=== PATIENT | female | born 1995 | race African-American/Black ===

== ENCOUNTER 2018-05-19 12:33 | Inpatient (IN) ==
--- NOTE | 2018-05-19 13:09 | ED ---
HPI General Chief complaint: Fever Stated complaint: fever Time Seen by Provider: 05/19/18 13:07 Source: patient Mode of arrival: ambulatory Limitations: no limitations History of Present Illness HPI narrative: Patient gives a history of diabetes, Hodgkin's lymphoma along with port placement and removal, feeding tube and placement and removal, kidney transplant , cholecystectomy, all of these occurred during the years of 199906/05/2015. Patient states allergy to ibuprofen to which she developed hives, also had a fainting reactions and is not sure if it was a clindamycin or the vancomycin. However at no point did she develop any lip edema of tongue edema uvular edema wheezing hives or any other skin lesions to the clindamycin or vancomycin. Patient states that she developed symptoms such as myalgias, fever, chills, along with nausea and periumbilical area pain. Onset (ago): day(s) (2) Location: abdomen Radiation: non-radiation Severity: mild Severity scale (1-10): 2 Quality: aching Pain Consistency: intermittent Relieving factors: none Exacerbating factors: none Associated symptoms: nausea/vomiting (diarrhea) Related Data Allergies Allergy/AdvReac Type Severity Reaction Status Date / Time clindamycin AdvReac Fainting Verified 05/19/18 13:14 ibuprofen [From Motrin] AdvReac Hives Verified 05/19/18 13:14 vancomycin AdvReac Fainting Verified 05/19/18 13:14 Review of Systems ROS: all other systems reviewed are negative PMFSH History History Provided By: Patient Medical History Medical History Anemia (Acute) Diabetes (Acute) H/O Hodgkin's lymphoma (Acute) Hypothyroid (Acute) Surgical History Surgical History Kidney transplanted (Acute) Social History Social History Substance History: No History of Abuse Smoking Status: Never smoker How Often Do You Have a Drink Containing Alcohol: Never Recent Travel in [facility] within the Last 8 Weeks: No Recent Out of Country Travel within the Last 8 Weeks: No Exam Narrative Exam Narrative: GENERAL: Well-nourished, well-developed patient in no apparent distress. SKIN: Warm and dry. HEAD: Atraumatic. Normocephalic. EYES: Pupils equal and round. No scleral icterus. No injection or drainage. ENT: No nasal bleeding or discharge. Mucous membranes pink and moist. NECK: Trachea midline. No JVD. CARDIOVASCULAR: Tachycardic rate, regular rhythm. no rubs or gallops RESPIRATORY: No accessory muscle use. Clear to auscultation. Breath sounds equal bilaterally. GASTROINTESTINAL: Abdomen soft, mild tenderness palpation epigastric and Periumbilically. Full range of motion in all joints. No joint swelling/injury. Non-tender, nondistended. No rebound or guarding MUSCULOSKELETAL: Extremities without clubbing, cyanosis, or edema. No obvious deformities. NEUROLOGICAL: Awake and alert. No obvious cranial nerve deficits. Motor grossly within normal limits. Five out of 5 muscle strength in the arms and legs. Normal speech. PSYCHIATRIC: Appropriate mood and affect; insight and judgment normal. Course Initial Documented Vital Signs Temperature 102.3 F H 05/19/18 12:55 Pulse Rate 146 H 05/19/18 12:55 Respiratory Rate 20 05/19/18 12:55 Blood Pressure 136/71 05/19/18 12:55 Pulse Oximetry 98 05/19/18 12:55 Last Documented Vital Signs Temperature 102.3 F H 05/19/18 12:55 Pulse Rate 120 H 05/19/18 13:48 Respiratory Rate 20 05/19/18 12:55 Blood Pressure 136/71 05/19/18 12:55 Pulse Oximetry 100 05/19/18 13:42 Critical Care Time Critical Care Time: Yes Total Critical Care Time: 45 Attestation: Aggregate critical care time was 45 minutes. Time to perform other separately billable procedures was not included in the critical care time. My time did not include minutes spent treating any other patients simultaneously or on activities that did not directly contribute to the patient's treatment. The services I provided to this patient were to treat and/or prevent clinically significant deterioration from occurring namely septic shock. I provided critical care services requiring my management, as noted below: Chart data review, documentation time, medication orders and management, vital sign assessments/reviewing monitor data, ordering and reviewing lab tests, ordering and interpreting/reviewing x-rays and diagnostic studies, care of the patient and discussion of the patient with the admitting physicians. Medical Decision Making MDM Narrative Medical decision making narrative: Leukocytosis of 18,000 with 79% neutrophilia , no anemia, normal platelet count Electrolytes are all within normal limits. Next up for creatinine of 2.31 with a GFR 32 random glucose of 153 Normal lactic acid 1.2 Normal LFTs and UA consistent with very heavy UTI Chest x-ray read by radiologist shows a left basilar atelectasis, right lung is clear. Medical Screen Exam Complete: Yes Emergency Medical Condition: Yes Differential Diagnosis Differential Diagnosis: Viral versus bacterial gastroenteritis versus hepatitis versus pancreatitis versus cholecystitis versus Medical Records Medical records reviewed: Yes I reviewed the patient's medical records. Lab Data Result diagrams: 05/19/18 13:10 05/19/18 13:10 POC Results POC Urine Results Negative Lab Results 05/19/18 05/19/18 05/19/18 Range/Units 13:10 13:10 13:15 WBC 18.6 H (4.0-11.0) th/mm3 RBC 3.97 L (4.00-5.30) mil/mm3 Hgb 11.6 (11.6-15.3) gm/dL Hct 35.5 (35.0-46.0) % MCV 89.4 (80.0-100.0) fL MCH 29.3 (27.0-34.0) pg MCHC 32.8 (32.0-36.0) % RDW 14.3 (11.6-17.2) % Plt Count 324 (150-450) th/mm3 MPV 8.3 (7.0-11.0) fL Neut % (Auto) 78.7 H (16.0-70.0) % Lymph % (Auto) 10.9 (9.0-44.0) % Cherry % (Auto) 10.0 H (0.0-8.0) % Eos % (Auto) 0.0 (0.0-4.0) % Baso % (Auto) 0.4 (0.0-2.0) % Neut # (Auto) 14.6 H (1.8-7.7) th/mm3 Lymph # (Auto) 2.0 (1.0-4.8) th/mm3 Cherry # (Auto) 1.8 H (0.0-0.9) th/mm3 Eos # (Auto) 0.0 (0.0-0.4) th/mm3 Baso # (Auto) 0.1 (0.0-0.2) th/mm3 WBC Differential . Differential Comment Auto diff final Sodium 139 (136-145) meq/L Potassium 3.9 (3.5-5.1) meq/L Chloride 105 (98-107) meq/L Carbon Dioxide 24.0 (21.0-32.0) meq/L Anion Gap 10 (5-15) meq/L BUN 19 H (7-18) mg/dL Creatinine 2.31 H (0.50-1.00) mg/dL Estimated GFR 32 L (>89) mL/min Random Glucose 153 H (74-106) mg/dL Lactic Acid 1.2 (0.4-2.0) mmol/L Calcium 9.4 (8.5-10.1) mg/dL Total Bilirubin 1.6 H (0.2-1.0) mg/dL AST 27 (15-37) U/L ALT 17 (10-53) U/L Alkaline Phosphatase 95 (45-117) U/L Total Protein 8.9 H (6.4-8.2) g/dL Albumin 3.6 (3.4-5.0) g/dL Lipase 57 L (73-393) U/L Urine Color (Yellw/Straw) Urine Clarity (Clear) Urine pH (5.0-8.5) Ur Specific [place] (1.002-1.035) Urine Protein (Neg-Trace) mg/dL Urine Glucose (UA) (Negative) mg/dL Urine Ketones (Negative) mg/dL Urine Occult Blood (Negative) Urine Nitrate (Negative) Urine Bilirubin (Negative) Urine Urobilinogen (Less than 2) mg/dL Ur Leukocyte Esterase (Negative) Urine RBC (0-3) /hpf Urine WBC (0-5) /hpf Urine WBC Clumps (None) Ur Squamous Epith Cells (0-5) /hpf Ur Transition Epith Cell (None) /hpf Amorphous Sediment (None) /hpf Urine Bacteria (None) /hpf Urine Mucus (Occasional) /lpf Micro UA Comment Ur Microscopic Review Urine Culture Comments 05/19/18 Range/Units 13:25 WBC (4.0-11.0) th/mm3 RBC (4.00-5.30) mil/mm3 Hgb (11.6-15.3) gm/dL Hct (35.0-46.0) % MCV (80.0-100.0) fL MCH (27.0-34.0) pg MCHC (32.0-36.0) % RDW (11.6-17.2) % Plt Count (150-450) th/mm3 MPV (7.0-11.0) fL Neut % (Auto) (16.0-70.0) % Lymph % (Auto) (9.0-44.0) % Cherry % (Auto) (0.0-8.0) % Eos % (Auto) (0.0-4.0) % Baso % (Auto) (0.0-2.0) % Neut # (Auto) (1.8-7.7) th/mm3 Lymph # (Auto) (1.0-4.8) th/mm3 Cherry # (Auto) (0.0-0.9) th/mm3 Eos # (Auto) (0.0-0.4) th/mm3 Baso # (Auto) (0.0-0.2) th/mm3 WBC Differential Differential Comment Sodium (136-145) meq/L Potassium (3.5-5.1) meq/L Chloride (98-107) meq/L Carbon Dioxide (21.0-32.0) meq/L Anion Gap (5-15) meq/L BUN (7-18) mg/dL Creatinine (0.50-1.00) mg/dL Estimated GFR (>89) mL/min Random Glucose (74-106) mg/dL Lactic Acid (0.4-2.0) mmol/L Calcium (8.5-10.1) mg/dL Total Bilirubin (0.2-1.0) mg/dL AST (15-37) U/L ALT (10-53) U/L Alkaline Phosphatase (45-117) U/L Total Protein (6.4-8.2) g/dL Albumin (3.4-5.0) g/dL Lipase (73-393) U/L Urine Color Red (Yellw/Straw) Urine Clarity Cloudy H (Clear) Urine pH 6.0 (5.0-8.5) Ur Specific [place] 1.017 (1.002-1.035) Urine Protein 100 H (Neg-Trace) mg/dL Urine Glucose (UA) 50 (Negative) mg/dL Urine Ketones 20 (Negative) mg/dL Urine Occult Blood Large H (Negative) Urine Nitrate Positive H (Negative) Urine Bilirubin Negative (Negative) Urine Urobilinogen Less than 2 (Less than 2) mg/dL Ur Leukocyte Esterase Large H (Negative) Urine RBC (0-3) /hpf Urine WBC (0-5) /hpf Urine WBC Clumps Many H (None) Ur Squamous Epith Cells 3 (0-5) /hpf Ur Transition Epith Cell 1 (None) /hpf Amorphous Sediment Rare H (None) /hpf Urine Bacteria Many H (None) /hpf Urine Mucus Few H (Occasional) /lpf Micro UA Comment Culture indicated Ur Microscopic Review Not Reportable Urine Culture Comments Culture indicated Imaging Data Radiologist's impression: Chest X-Ray 05/19/18 13:09 CONCLUSION: Left basilar atelectasis. Discharge Plan Discharge Disposition Patient Disposition: 30 Still Patient Discharge Condition Condition: Fair Discharge Details Diagnosis: Sepsis, Enteritis, UTI (urinary tract infection) Physicians Team ED Provider: Stanton Coleman Primary Care Provider: Primary Care Ariadne Velásquez Status ED Status: With Doctor
[2018-05-19] MEDS ORDERED: Acetaminophen 325 MG Tablet PO ONE (13:14)
[2018-05-19] MEDS ORDERED: Sod Chloride 0.9% Inj 1,000 ML IV.SIG SCH ×2 (13:15)
--- NOTE | 2018-05-19 13:40 | XR ---
EXAM DATE: 05/19/2018 1:37 PM EDT AGE/SEX: 22 years / Female INDICATIONS: Shortness of breath, cough and chest pain. CLINICAL DATA: This is the patient's initial encounter. Patient reports that signs and symptoms have been present for 3 days and indicates a pain score of 6/10. MEDICAL/SURGICAL HISTORY: None. None. COMPARISON: No prior exams available for comparison. FINDINGS: Right lung is clear. Linear subsegmental atelectasis left lung base. Heart size normal. Osseous struc tures are intact. CONCLUSION: Left basilar atelectasis. Electronically signed by: Tres Beltre MD 05/19/2018 1:39 PM EDT
[2018-05-19 13:48] LABS: Baso # (Auto) 0.1 th/mm3 (0.0-0.2); Baso % (Auto) 0.4 % (0.0-2.0); Hematocrit 35.5 % (35.0-46.0); Hemoglobin 11.6 gm/dL (11.6-15.3); Lymph % (Auto) 10.9 % (9.0-44.0); Mean Corpuscular HGB Conc 32.8 % (32.0-36.0); Mean Corpuscular Hemoglobin 29.3 pg (27.0-34.0); Mean Corpuscular Volume 89.4 fL (80.0-100.0); Mean Platelet Volume 8.3 fL (7.0-11.0); Mono # (Auto) 1.8 th/mm3 (0.0-0.9); Neut # (Auto) 14.6 th/mm3 (1.8-7.7); Neut % (Auto) 78.7 % (16.0-70.0); Platelet Count 324 th/mm3 (150-450); Red Blood Count 3.97 mil/mm3 (4.00-5.30); Red Cell Distribution Width 14.3 % (11.6-17.2); White Blood Count 18.6 th/mm3 (4.0-11.0)
[2018-05-19 14:00] LABS: Amorphous Sediment,Urine Rare /hpf; Bacteria,Urine Many /hpf; Bilirubin,Urine Negative (Negative); Clarity,Urine Cloudy (Clear); Color,Urine Red (Yellw/Straw); Glucose,Urine (UA) 50 mg/dL (Negative); Leukocyte Esterase,Urine Large (Negative); Mucus,Urine Few /lpf (Occasional); Nitrite,Urine Positive (Negative); Specific Gravity,Urine 1.017 (1.002-1.035); Squamous Epithelial Cell,Urine 3 /hpf (0-5); Transitional Epi Cells,Urine 1 /hpf
[2018-05-19 14:02] LABS: Alanine Aminotransferase 17 U/L (10-53); Albumin 3.6 g/dL (3.4-5.0); Anion Gap 10 meq/L (5-15); Aspartate Aminotransferase 27 U/L (15-37); Blood Urea Nitrogen 19 mg/dL (7-18); Calcium 9.4 mg/dL (8.5-10.1); Chloride 105 meq/L (98-107); Glomerular Filtration Rate 32 mL/min (>89); Glucose,Random 153 mg/dL (74-106); Lipase 57 U/L (73-393); Potassium 3.9 meq/L (3.5-5.1); Sodium 139 meq/L (136-145)
[2018-05-19 14:05] LABS: Alkaline Phosphatase 95 U/L (45-117); Total Protein 8.9 g/dL (6.4-8.2)
[2018-05-19] MEDS ORDERED: Sod Chloride 0.9% Inj 1,000 ML IV.SIG ONE (14:49)
--- NOTE | 2018-05-19 15:28 | P.HPIM ---
History of Present Illness Primary Care Physician: No Primary Care Physician History of Present Illness: 22 year old female with IDDM, hypothyroidism, history of renal transplant (2016), and history of Hodgkin lymphoma in remission presented to the ED for evaluation of fever, myalgias, and dysuria. The patient reports two days ago she started having diffuse body aches, chills, and general malaise. She took her temperature and it was 100.8. She treated it with Tylenol and continued to have a low grade fever but today her temperature spiked to 103.4. She has also had 6/10, periumbilical, constant, dull abdominal pain during this time and today she began having dysuria, nausea, dry heaves, and nonbloody liquid diarrhea. She has had decreased appetite and oral intake the past couple days. She also complains of some substernal chest pain that is associated with a sour taste in her mouth and heart burn. She denies cough, shortness of breath , wheezing, rash, headache, sore throat, hematuria, or edema. Along with her dysuria she also complains of hesitancy and decreased UOP. She states her creatinine is typically around 1. She recently moved to [place] from [place] at the end of December but hasn't been able to establish with any local physicians yet. While in [place] she was followed by nephrology, endocrinology, and oncology. For her diabetes, she takes 15 units Novolog TID and 25 units Trasiba. - Diagnosis (1) Pyelonephritis (2) Sepsis Inpatient Certification: I certify that the inpatient services were ordered in accordance with Medicare regulations governing the order. This includes certification that hospital inpatient services are reasonable and necessary and in the case of services not specified as inpatient-only under 42 CFR 419.22(n), that they are appropriately provided as inpatient services in accordance to with the 2-midnight benchmark under 43 CFR 412.3(e) Estimated Total Length of Stay (Days): 2 Plans for Post Hospital Care: Home [facility] - History History Provided By: Patient - Medical History Medical History: Medical History (Last Reviewed 05/19/18 @ 15:27 by Christine Christian MD) Anemia Diabetes H/O Hodgkin's lymphoma Hypothyroid - Surgical History Surgical History: Surgical History (Last Updated 05/19/18 @ 15:27 by Christine Christian MD) H/O stem cell transplant Hx of cholecystectomy Kidney transplanted - Family History Family History: Family History (Last Updated 05/19/18 @ 15:28 by Christine Christian MD) Grandparent Hypertension Heart disease - Social History I have reviewed the patient's Social History: Yes - Tobacco History Smoking Status: Never smoker - Alcohol History How Often Do You Have a Drink Containing Alcohol: Never - Substance Use History Substance History: No History of Abuse - Travel History Recent Travel in the [place] Within the Last 8 Weeks: No Recent Travel Out of the Country Within the Last 8 Weeks: No - Immunization History Tetanus Immunization: Unsure Hx Influenza Vaccine This Season: No Medications and Allergies Active Medications: Active Medications Sodium Chloride (Ns Inj) 1,000 mls @ 0 mls/hr IV.SIG .Q0M ANNAMARIE Last Infusion: 05/19/18 15:18 Dose: Infused Sodium Chloride (Ns Inj) 1,000 mls @ 0 mls/hr IV.SIG .Q0M ANNAMARIE Last Admin: 05/19/18 15:10 Dose: 999 mls/hr Metronidazole/Sodium Chloride (Flagyl 500 Mg Inj) 100 mls @ 100 mls/hr IV.SIG ONCE ONE Stop: 05/19/18 15:51 Last Admin: 05/19/18 15:10 Dose: 100 mls/hr Allergies Allergy/AdvReac Type Severity Reaction Status Date / Time clindamycin AdvReac Fainting Verified 05/19/18 13:14 ibuprofen [From Motrin] AdvReac Hives Verified 05/19/18 13:14 vancomycin AdvReac Fainting Verified 05/19/18 13:14 Home Medications Medication Instructions Recorded Confirmed Type insulin aspart U-100 [Novolog 15 unit SUB-Q TIDAC 05/19/18 05/19/18 History Flexpen U-100 Insulin] insulin degludec [Tresiba 25 unit SUB-Q HS 05/19/18 05/19/18 History FlexTouch U-100] levothyroxine 100 mcg PO DAILY 05/19/18 05/19/18 History mycophenolate mofetil [CellCept] 2,250 mg PO BID 05/19/18 05/19/18 History prednisone 5 mg PO DAILY 05/19/18 05/19/18 History tacrolimus [Envarsus XR] 6 mg PO DAILY 05/19/18 05/19/18 History Exam Vital signs: Vital Signs 05/19/18 12:55 05/19/18 13:42 05/19/18 13:48 Temperature 102.3 F H Pulse Rate 146 H 120 H Respiratory Rate 20 Blood Pressure 136/71 Pulse Oximetry 98 100 05/19/18 15:12 Temperature 100.6 F H Pulse Rate 107 H Respiratory Rate 16 Blood Pressure 107/58 L Pulse Oximetry 100 Intake & Output 05/18/18 05/19/18 05/19/18 18:59 06:59 18:59 Intake Total 1000 / 1000 Balance 1000 / 1000 Weight 95 kg Intake: IV 1000 / 1000 NS Inj 1,000 ML @ Wide Open IV. 1000 / 1000 SIG .Q0M [facility] Rx#:[id number] Narrative: GENERAL: WN, WD AA female resting in bed in NAD. SKIN: Warm and dry. No rash. HEENT: AT/NC. PERRLA. EOMI. No scleral icterus. MMM. NECK: Supple no tender LAD or JVD. HEART: Tachycardic no m/r/g. LUNGS: CTAB without wheezes or crackles. ABDOMEN: +BS, soft, NT, ND. No suprapubic tenderness. No guarding or rebound. BACK: No CVA tenderness. EXTREMITIES: No LE edema. 2+ pedal pulses. NEURO: Awake and alert. Nonfocal. Results - Labs CBC & Chem 7: 05/19/18 13:10 05/19/18 13:10 Labs: Short CBC 05/19/18 Range/Units 13:10 WBC 18.6 H (4.0-11.0) th/mm3 Hgb 11.6 (11.6-15.3) gm/dL Hct 35.5 (35.0-46.0) % Plt Count 324 (150-450) th/mm3 BMP 05/19/18 13:10 Sodium 139 Potassium 3.9 Chloride 105 Carbon Dioxide 24.0 BUN 19 H Creatinine 2.31 H Calcium 9.4 Liver Function 05/19/18 Range/Units 13:10 Total Bilirubin 1.6 H (0.2-1.0) mg/dL AST 27 (15-37) U/L ALT 17 (10-53) U/L Alkaline Phosphatase 95 (45-117) U/L Albumin 3.6 (3.4-5.0) g/dL Urine 05/19/18 Range/Units 13:25 Urine Color Red (Yellw/Straw) Urine Clarity Cloudy H (Clear) Urine pH 6.0 (5.0-8.5) Ur Specific [place] 1.017 (1.002-1.035) Urine Protein 100 H (Neg-Trace) mg/dL Urine Glucose (UA) 50 (Negative) mg/dL - Imaging Chest X-Ray 05/19/18 13:09 CONCLUSION: Left basilar atelectasis. Abdomen/Pelvis CT 05/19/18 14:50 CONCLUSION: 1. Transplant kidney in the right side of the pelvis. Mild nonspecific stranding opacity in the fat about the transplant kidney. No evidence of hydronephrosis. 2. No other acute findings identified in the abdomen and pelvis. Caprini VTE Risk Assessment Caprini VTE Risk Assessment: Moderate/High Risk (score >= 2) Caprini Risk Assessment Model: Point Value = 1 Point Value = 2 Point Value = 3 Point Value = 5 Age 41-60 Minor surgery BMI > 25 kg/m2 Swollen legs Varicose veins or History of unexplained or recurrent spontaneous Oral contraceptives or hormone replacement Sepsis (< 1 month) Serious lung disease, including pneumonia (< 1 month) Abnormal pulmonary function Acute myocardial infarction Congestive heart failure (< 1 month) History of inflammatory bowel disease Medical patient at bed rest Age 61-74 Arthroscopic surgery Major open surgery (> 45 min) Laparoscopic surgery (> 45 min) Malignancy Confined to bed (> 72 hours) Immobilizing plaster cast Central venous access Age >= 75 History of VTE Family history of VTE Factor V Leiden Prothrombin [id number] Lupus anticoagulant Anticardiolipin antibodies Elevated serum homocysteine Heparin-induced thrombocytopenia Other congenital or acquired thrombophilia Stroke (< 1 month) Elective arthroplasty Hip, pelvis, or leg fracture Acute spinal cord injury (< 1 month) Prophylaxis Regimen: Total Risk Factor Score Risk Level Prophylaxis Regimen 0-1 Low Early ambulation 2 Moderate Order ONE of the following: *Sequential Compression Device (SCD) *Heparin 5000 units SQ BID 3-4 Higher Order ONE of the following medications: *Heparin 5000 units SQ TID *Enoxaparin/Lovenox 40 mg SQ daily (WT < 150 kg, CrCl > 30 mL/min) *Enoxaparin/Lovenox 30 mg SQ daily (WT < 150 kg, CrCl > 10-29 mL/min) *Enoxaparin/Lovenox 30 mg SQ BID (WT < 150 kg, CrCl > 30 mL/min) AND/OR *Sequential Compression Device (SCD) 5 or more Highest Order ONE of the following medications: *Heparin 5000 units SQ TID (Preferred with Epidurals) *Enoxaparin/Lovenox 40 mg SQ daily (WT < 150 kg, CrCl > 30 mL/min) *Enoxaparin/Lovenox 30 mg SQ daily (WT < 150 kg, CrCl > 10-29 mL/min) *Enoxaparin/Lovenox 30 mg SQ BID (WT < 150 kg, CrCl > 30 mL/min) AND *Sequential Compression Device (SCD) Assessment and Plan - Assessment (1) Pyelonephritis Code(s): N12 - Tubulo-interstitial nephritis, not specified as acute or chronic Status: Acute (2) Sepsis Code(s): A41.9 - Sepsis, unspecified organism Status: Acute - Plan 22 year old female with IDDM, hypothyroidism, history of renal transplant (2016), and history of Hodgkin lymphoma in remission presented to the ED for evaluation of fever, myalgias, and dysuria. 1. Sepsis - Patient meets sepsis criteria based on fever with T 102.3 on arrival, tachycardia, leukocytosis with WBC 18.6, and source of infection (urine) - Lactic acid normal at 1.2 - Received NS bolus x 2 in the ED - Continue NS at 100 ml/hr - Blood and urine cultures pending - Rapid strep and influenza antigens negative 2. Pyelonephritis - U/A with large blood, positive nitrate, and large leukocyte esterase - Urine culture pending, await final C&S - CT A/P with some perinephric fat stranding about the right transplanted kidney - Given a dose of Rocephin in the ED which will continue - IV hydration and antiemetics PRN 3. CASSANDRA - Patient with a history of right renal transplant in 2016 - Self-reported creatinine baseline is around 1 - Creatinine 2.31 with BUN 19 on admission, likely secondary to infection and decreased oral intake - Bolused x 2 - Continue NS fluids - Monitor renal function - Avoid nephrotoxic agents 4. Abdominal pain - Abdominal exam is benign - CT A/P with some perinephric fat stranding as described above otherwise no acute findings - Lipase WNL - Likely secondary to UTI vs. possible concomitant gastroenteritis given diarrhea, nausea, and dry heaves 5. Diabetes - Patient on 15 units Novolog TID and 25 units Trasiba at home - Will place on SSI with Accuchecks per protocol given appetite and oral intake is diminished 6. GERD - Zantac BID 7. History of renal transplant - Continue home immunosuppressants 8. Hypothyroidism - Resume home levothyroxine DVT prophylaxis: SCDs Code Status: Full Discussed Condition With: Patient and her mother, ED physician (2) Sepsis Qualifiers: Sepsis type: sepsis due to unspecified organism Qualified Code(s): A41.9 - Sepsis, unspecified organism
[2018-05-19] MEDS ORDERED: Bisacodyl 10 MG Supp RECTAL PRN (15:38)
[2018-05-19] MEDS ORDERED: Zolpidem Tartrate 5 MG Tablet PO PRN (15:38)
[2018-05-19] MEDS ORDERED: Dextrose 50% in Water 50 ML Vial IV.PUSH PRN (15:43)
--- NOTE | 2018-05-19 16:18 | CT ---
EXAM DATE: 05/19/2018 3:59 PM EDT AGE/SEX: 22 years / Female INDICATIONS: Lower abdominal pain, nausea, and diarrhea for two days. CLINICAL DATA: This is the patient's initial encounter. Patient reports that signs and symptoms have been present for 2 days and indicates a pain score of 6/10. MEDICAL/SURGICAL HISTORY: Anemia. Diabetes. Hodgkins lymphoma. . Kidney transplant two years ago. RADIATION DOSE: 7.97 CTDI (mGy) COMPARISON: No prior exams available for comparison. TECHNIQUE: Multiple contiguous axial images were obtained through the abdomen. Images were obtained using multiple row detector helical technique. Using automated exposure control and adjustment of the mA and/or kV according to patient size, radiation dose was kept as low as reasonably achievable to o btain optimal diagnostic quality images. DICOM format image data is available electronically for rev iew and comparison. FINDINGS: Lower Lungs: Atelectasis at the left lung base. Liver: Cholecystectomy clips in the gallbladder fossa. Liver is homogeneous and within normal limits. Spleen: Homogeneous density without enlargement. Pancreas: Unremarkable without mass or calcification. Kidneys: Atrophic [place] kidneys. Transplant kidney is noted in the right side of the pelvis. Mild s tranding opacity about the transplant kidney. No evidence of hydronephrosis. No calculi identified. Adrenal Glands: Unremarkable. Aorta: The aorta and proximal iliac vessels are grossly unremarkable without aneurysmal dilation. Bowel/Mesentery: No evidence of bowel dilatation. No free air or free fluid. Appendix within normal limits. Abdominal Wall: Intact. Retroperitoneum: Within normal limits. Multiple subcentimeter lymph nodes are likely reactive. Bladder: Contours are smooth. Reproductive Organs: No abnormal masses or calcifications seen. Inguinal: The inguinal region is unremarkable without evidence of adenopathy. Bony Structures: Unremarkable. CONCLUSION: 1. Transplant kidney in the right side of the pelvis. Mild nonspecific stranding opacity in the fat about the transplant kidney. No evidence of hydronephrosis. 2. No other acute findings identified in the abdomen and pelvis. Electronically signed by: Ashish Jimenes MD 05/19/2018 4:17 PM EDT
[2018-05-19] MEDS ORDERED: Morphine Sulfate Inj 2 MG/ML Vial IV.PUSH PRN (17:26)
[2018-05-19] MEDS ORDERED: Mycophenolate Mofetil 250 MG Capsule PO SCH (18:00)
[2018-05-19] MEDS: Insulin NovoLOG Aspart Correctional Sugar Inj SQ SCH ×2 (20:36→21:18)
[2018-05-19] MEDS: Acetaminophen 325 MG Tablet PO PRN (21:08)
[2018-05-19] MEDS: Famotidine 20 MG Tablet PO SCH ×2 (21:08→21:12)
[2018-05-19] MEDS: Sod Chloride 0.9% Inj 1,000 ML IV.CONT SCH (21:16)
[2018-05-19] MEDS: Insulin Detemir Inj 1,000 UNIT/10 ML Vial SQ SCH (21:47)
[2018-05-19] MEDS: Mycophenolate Mofetil 250 MG Capsule PO SCH (22:04)
[2018-05-20 04:54] LABS: Baso % (Auto) 0.3 % (0.0-2.0); Eos # (Auto) 0.1 th/mm3 (0.0-0.4); Eos % (Auto) 0.5 % (0.0-4.0); Hematocrit 30.1 % (35.0-46.0); Hemoglobin 9.8 gm/dL (11.6-15.3); Lymph # (Auto) 1.4 th/mm3 (1.0-4.8); Lymph % (Auto) 11.3 % (9.0-44.0); Mean Corpuscular HGB Conc 32.5 % (32.0-36.0); Mean Corpuscular Hemoglobin 28.9 pg (27.0-34.0); Mean Corpuscular Volume 89.2 fL (80.0-100.0); Mono # (Auto) 1.2 th/mm3 (0.0-0.9); Mono % (Auto) 9.9 % (0.0-8.0); Neut # (Auto) 9.5 th/mm3 (1.8-7.7); Platelet Count 258 th/mm3 (150-450); Red Blood Count 3.37 mil/mm3 (4.00-5.30); Red Cell Distribution Width 14.3 % (11.6-17.2); White Blood Count 12.2 th/mm3 (4.0-11.0)
[2018-05-20 05:23] LABS: Carbon Dioxide 21.8 meq/L (21.0-32.0); Potassium 3.8 meq/L (3.5-5.1)
[2018-05-20] MEDS: Levothyroxine 100 MCG Tablet PO SCH (05:36)
[2018-05-20] MEDS: Mycophenolate Mofetil 250 MG Capsule PO SCH ×2 (05:36→18:32)
[2018-05-20] MEDS: Sod Chloride 0.9% Inj 1,000 ML IV.CONT SCH ×2 (05:39→15:17)
[2018-05-20] MEDS ORDERED: TACROLIMUS 1 MG PO SCH (06:00)
[2018-05-20] MEDS: Famotidine 20 MG Tablet PO SCH ×2 (08:48→20:38)
[2018-05-20] MEDS: predniSONE 5 MG Tablet PO SCH (08:48)
[2018-05-20] MEDS: Insulin Detemir Inj 1,000 UNIT/10 ML Vial SQ SCH ×2 (08:48→20:36)
[2018-05-20] MEDS: Acetaminophen 325 MG Tablet PO PRN ×2 (08:49→23:46)
[2018-05-20] MEDS: Insulin NovoLOG Aspart Correctional Sugar Inj SQ SCH ×4 (09:47→20:25)
--- NOTE | 2018-05-20 10:48 | P.PN ---
Subjective Interval history: Follow-up for sepsis, urinary tract infection with possible hilar nephritis. Patient is currently doing well. Ambulating well. Denies any chest pain, shortness of breath. However she continues to have fever. She had 103.0F fever today. She denies any flank pain but reports lower abdominal pain. Physical Exam Vital signs: Vital Signs 05/19/18 12:55 05/19/18 13:42 05/19/18 13:48 Temperature 102.3 F H Pulse Rate 146 H 120 H Respiratory Rate 20 Blood Pressure 136/71 Pulse Oximetry 98 100 05/19/18 15:12 05/19/18 17:58 05/19/18 19:00 Temperature 100.6 F H Pulse Rate 107 H 103 H Respiratory Rate 16 Blood Pressure 107/58 L Pulse Oximetry 100 100 05/19/18 20:00 05/19/18 21:00 05/19/18 22:00 Temperature 102 F H Pulse Rate 122 H 122 H 118 H Respiratory Rate 16 Blood Pressure 116/71 Pulse Oximetry 99 05/19/18 23:00 05/19/18 23:49 05/20/18 00:00 Temperature 100.9 F H Pulse Rate 116 H 115 H 102 H Respiratory Rate 16 Blood Pressure 104/56 L Pulse Oximetry 99 05/20/18 01:00 05/20/18 01:27 05/20/18 02:00 Temperature 99 F Pulse Rate 98 H 95 H Respiratory Rate Blood Pressure Pulse Oximetry 05/20/18 03:00 05/20/18 03:47 05/20/18 04:00 Temperature 100.1 F H Pulse Rate 99 H 98 H 102 H Respiratory Rate 16 Blood Pressure 112/67 Pulse Oximetry 100 05/20/18 05:00 05/20/18 05:10 05/20/18 06:00 Temperature Pulse Rate 102 H 108 H Respiratory Rate Blood Pressure Pulse Oximetry 99 05/20/18 07:00 05/20/18 08:00 05/20/18 10:16 Temperature 103.0 F H Pulse Rate 113 H 107 H Respiratory Rate 18 Blood Pressure 124/70 Pulse Oximetry 100 99 Intake & Output 05/19/18 05/20/18 05/20/18 18:59 06:59 18:59 Intake Total 2200 / 2200 2480 / 2480 Output Total 200 / 200 700 / 700 Balance 1999 1999 1780 / 1780 Weight 95 kg 84.2 kg Intake: IV 2200 / 2200 1999 NS Inj 1,000 ML @ 100 mls/hr IV 1000 / 1000 .CONT .Q10H ANNAMARIE Rx#:[id number] NS Inj 1,000 ML @ Wide Open IV. 1999 1000 / 1000 SIG BOLUS ONE Rx#:[id number] Rocephin Inj 2,000 MG In NS Inj 100 / 100 100 ML @ 200 mls/hr IV.SIG ONCE ONE Rx#:[id number] Flagyl 500 MG Inj 100 ML @ 100 100 / 100 mls/hr IV.SIG ONCE ONE Rx#: [id number] Oral 480 / 480 Output: Urine 200 / 200 700 / 700 Other: Date of Last Bowel Movement 05/19/18 05/19/18 05/19/18 Narrative: GENERAL: Alert, oriented 3, NAD. SKIN: Warm and dry. HEAD: Normocephalic. EYES: No scleral icterus. No injection or drainage. NECK: Supple, trachea midline. No JVD or lymphadenopathy. CARDIOVASCULAR: Regular rate and rhythm without murmurs, gallops, or rubs. RESPIRATORY: Breath sounds equal bilaterally. No accessory muscle use. GASTROINTESTINAL: Abdomen soft, non-tender, nondistended. MUSCULOSKELETAL: No cyanosis, or edema. BACK: Nontender without obvious deformity. No CVA tenderness. Results - Labs CBC & Chem 7: 05/20/18 04:30 05/20/18 04:30 Laboratory Results - last 24 hr 05/19/18 05/19/18 05/19/18 13:10 13:10 13:15 WBC 18.6 H RBC 3.97 L Hgb 11.6 Hct 35.5 MCV 89.4 MCH 29.3 MCHC 32.8 RDW 14.3 Plt Count 324 MPV 8.3 Neut % (Auto) 78.7 H Lymph % (Auto) 10.9 Barry % (Auto) 10.0 H Eos % (Auto) 0.0 Baso % (Auto) 0.4 Neut # (Auto) 14.6 H Lymph # (Auto) 2.0 Barry # (Auto) 1.8 H Eos # (Auto) 0.0 Baso # (Auto) 0.1 WBC Differential . Differential Comment Auto diff final Sodium 139 Potassium 3.9 Chloride 105 Carbon Dioxide 24.0 Anion Gap 10 BUN 19 H Creatinine 2.31 H Estimated GFR 32 L POC Glucose Random Glucose 153 H Lactic Acid 1.2 Calcium 9.4 Total Bilirubin 1.6 H AST 27 ALT 17 Alkaline Phosphatase 95 Total Protein 8.9 H Albumin 3.6 Lipase 57 L Urine Color Urine Clarity Urine pH Ur Specific [place] Urine Protein Urine Glucose (UA) Urine Ketones Urine Occult Blood Urine Nitrate Urine Bilirubin Urine Urobilinogen Ur Leukocyte Esterase Urine RBC Urine WBC Urine WBC Clumps Ur Squamous Epith Cells Ur Transition Epith Cell Amorphous Sediment Urine Bacteria Urine Mucus Micro UA Comment Ur Microscopic Review Urine Culture Comments 05/19/18 05/19/18 05/19/18 13:25 18:36 21:00 WBC RBC Hgb Hct MCV MCH MCHC RDW Plt Count MPV Neut % (Auto) Lymph % (Auto) Barry % (Auto) Eos % (Auto) Baso % (Auto) Neut # (Auto) Lymph # (Auto) Barry # (Auto) Eos # (Auto) Baso # (Auto) WBC Differential Differential Comment Sodium Potassium Chloride Carbon Dioxide Anion Gap BUN Creatinine Estimated GFR POC Glucose 124 H 100 Random Glucose Lactic Acid Calcium Total Bilirubin AST ALT Alkaline Phosphatase Total Protein Albumin Lipase Urine Color Red Urine Clarity Cloudy H Urine pH 6.0 Ur Specific [place] 1.017 Urine Protein 100 H Urine Glucose (UA) 50 Urine Ketones 20 Urine Occult Blood Large H Urine Nitrate Positive H Urine Bilirubin Negative Urine Urobilinogen Less than 2 Ur Leukocyte Esterase Large H Urine RBC Urine WBC Urine WBC Clumps Many H Ur Squamous Epith Cells 3 Ur Transition Epith Cell 1 Amorphous Sediment Rare H Urine Bacteria Many H Urine Mucus Few H Micro UA Comment Culture indicated Ur Microscopic Review Not Reportable Urine Culture Comments Culture indicated 05/20/18 05/20/18 05/20/18 04:30 04:30 08:28 WBC 12.2 H RBC 3.37 L Hgb 9.8 L Hct 30.1 L MCV 89.2 MCH 28.9 MCHC 32.5 RDW 14.3 Plt Count 258 MPV 8.0 Neut % (Auto) 78.0 H Lymph % (Auto) 11.3 Barry % (Auto) 9.9 H Eos % (Auto) 0.5 Baso % (Auto) 0.3 Neut # (Auto) 9.5 H Lymph # (Auto) 1.4 Barry # (Auto) 1.2 H Eos # (Auto) 0.1 Baso # (Auto) 0.0 WBC Differential . Differential Comment Auto diff final Sodium 144 Potassium 3.8 Chloride 112 H Carbon Dioxide 21.8 Anion Gap 10 BUN 14 Creatinine 1.56 H Estimated GFR 51 L POC Glucose 118 H Random Glucose 111 H Lactic Acid Calcium 8.0 L D Total Bilirubin AST ALT Alkaline Phosphatase Total Protein Albumin Lipase Urine Color Urine Clarity Urine pH Ur Specific [place] Urine Protein Urine Glucose (UA) Urine Ketones Urine Occult Blood Urine Nitrate Urine Bilirubin Urine Urobilinogen Ur Leukocyte Esterase Urine RBC Urine WBC Urine WBC Clumps Ur Squamous Epith Cells Ur Transition Epith Cell Amorphous Sediment Urine Bacteria Urine Mucus Micro UA Comment Ur Microscopic Review Urine Culture Comments Microbiology 05/19/18 13:40 Throat Group A Streptococcus Screen ([facility]) - Final 05/19/18 13:25 Nasal Wash Influenza Types A,B Antigen - Final Negative for FLU A and B antigen Infection due to influenza A or B cannot be ruled out since the antigen present in the sample may be below the detection limit of the test. - Imaging Impressions Chest X-Ray 05/19/18 13:09 CONCLUSION: Left basilar atelectasis. Abdomen/Pelvis CT 05/19/18 14:50 CONCLUSION: 1. Transplant kidney in the right side of the pelvis. Mild nonspecific stranding opacity in the fat about the transplant kidney. No evidence of hydronephrosis. 2. No other acute findings identified in the abdomen and pelvis. Assessment and Plan - Assessment (1) Pyelonephritis Code(s): N12 - Tubulo-interstitial nephritis, not specified as acute or chronic Status: Acute (2) Sepsis Code(s): A41.9 - Sepsis, unspecified organism Status: Acute - Plan Ms. Bucio is a 22 year old female with IDDM, hypothyroidism, history of renal transplant (2016), and history of Hodgkin lymphoma in remission presented to the ED for evaluation of fever, myalgias, and dysuria. Sepsis - Patient meets sepsis criteria based on fever with T 102.3 on arrival, tachycardia, leukocytosis with WBC 18.6, and source of infection (urine) - Lactic acid normal at 1.2 - Received NS bolus x 2 in the ED - Continue NS at 100 ml/hr - Blood and urine cultures pending - Rapid strep and influenza antigens negative Urine tract infection Possible pyelonephritis - U/A with large blood, positive nitrate, and large leukocyte esterase - Urine culture growing GNR. Will wait for identification. - Continue Ceftriaxone 1g Qday. - CT A/P with some perinephric fat stranding about the right transplanted kidney - Given a dose of Rocephin in the ED which will continue - IV hydration and antiemetics PRN Acute kidney injury Hx of Renal transplant (right side) - Patient with a history of right renal transplant in 2016 - Self-reported creatinine baseline is around 1 - Creatinine 2.31 improved to 1.56. - Will continue IV NS today. Repeat BMP in the AM. Tacrolimus level less than 2. Diabetes mellitus - Patient on 15 units Novolog TID and 25 units Tresiba at home - In the hospital, we will continue sliding scale insulin and Levemir 7 units q. at bedtime. Hypothyroidism - Resume home levothyroxine 100mcg QAM Full code. DVT prophylaxis: SCDs (2) Sepsis Qualifiers: Sepsis type: sepsis due to unspecified organism Qualified Code(s): A41.9 - Sepsis, unspecified organism
[2018-05-20] MEDS ORDERED: TACROLIMUS 1 MG PO ONE (21:00)
[2018-05-21] MEDS: Mycophenolate Mofetil 250 MG Capsule PO SCH ×2 (06:31→19:02)
[2018-05-21] MEDS: Levothyroxine 100 MCG Tablet PO SCH (06:31)
[2018-05-21] MEDS: TACROLIMUS 1 MG PO SCH (06:32)
[2018-05-21 07:23] LABS: Baso % (Auto) 0.2 % (0.0-2.0); Eos # (Auto) 0.1 th/mm3 (0.0-0.4); Eos % (Auto) 1.3 % (0.0-4.0); Hematocrit 29.2 % (35.0-46.0); Hemoglobin 9.8 gm/dL (11.6-15.3); Lymph # (Auto) 1.5 th/mm3 (1.0-4.8); Lymph % (Auto) 13.3 % (9.0-44.0); Mean Corpuscular HGB Conc 33.5 % (32.0-36.0); Mean Corpuscular Hemoglobin 29.7 pg (27.0-34.0); Mean Corpuscular Volume 88.7 fL (80.0-100.0); Mean Platelet Volume 8.3 fL (7.0-11.0); Mono # (Auto) 1.1 th/mm3 (0.0-0.9); Mono % (Auto) 10.3 % (0.0-8.0); Neut # (Auto) 8.2 th/mm3 (1.8-7.7); Neut % (Auto) 74.9 % (16.0-70.0); Platelet Count 298 th/mm3 (150-450); Red Blood Count 3.29 mil/mm3 (4.00-5.30); Red Cell Distribution Width 14.7 % (11.6-17.2)
[2018-05-21 07:29] LABS: Calcium 8.4 mg/dL (8.5-10.1); Carbon Dioxide 19.3 meq/L (21.0-32.0); Potassium 3.4 meq/L (3.5-5.1)
[2018-05-21] MEDS: predniSONE 5 MG Tablet PO SCH (08:29)
[2018-05-21] MEDS: Famotidine 20 MG Tablet PO SCH ×2 (08:31→22:20)
[2018-05-21] MEDS: Insulin NovoLOG Aspart Correctional Sugar Inj SQ SCH ×4 (08:31→22:21)
--- NOTE | 2018-05-21 08:37 | P.PN ---
Subjective Interval history: Follow up for UTI. Patient is doing well. Had mild fever. No chest pain, SOB. Later in the day, she felt somewhat nauseated. Physical Exam Vital signs: Vital Signs 05/20/18 09:00 05/20/18 10:00 05/20/18 10:16 Temperature Pulse Rate 106 H 106 H Respiratory Rate Blood Pressure Pulse Oximetry 99 05/20/18 11:00 05/20/18 12:00 05/20/18 13:00 Temperature 99.8 F H Pulse Rate 101 H 89 110 H Respiratory Rate 18 Blood Pressure 114/68 Pulse Oximetry 100 05/20/18 14:00 05/20/18 15:00 05/20/18 16:00 Temperature 99.0 F Pulse Rate 82 117 H 98 H Respiratory Rate 18 Blood Pressure 107/67 Pulse Oximetry 99 05/20/18 17:00 05/20/18 18:00 05/20/18 19:00 Temperature Pulse Rate 102 H 112 H 121 H Respiratory Rate Blood Pressure Pulse Oximetry 05/20/18 19:44 05/20/18 19:45 05/20/18 20:00 Temperature 99.2 F Pulse Rate 111 H 96 H Respiratory Rate 16 Blood Pressure 125/79 Pulse Oximetry 99 99 05/20/18 21:00 05/20/18 22:00 05/20/18 23:00 Temperature Pulse Rate 86 98 H 96 H Respiratory Rate Blood Pressure Pulse Oximetry 05/21/18 00:00 05/21/18 01:00 05/21/18 02:00 Temperature 100.4 F H Pulse Rate 100 H 98 H 98 H Respiratory Rate 16 Blood Pressure 136/77 Pulse Oximetry 100 05/21/18 03:00 05/21/18 03:53 05/21/18 04:00 Temperature 98.2 F Pulse Rate 88 94 H 104 H Respiratory Rate 16 Blood Pressure 115/72 Pulse Oximetry 99 05/21/18 05:00 05/21/18 06:00 05/21/18 07:00 Temperature Pulse Rate 92 H 92 H 92 H Respiratory Rate Blood Pressure Pulse Oximetry Intake & Output 05/20/18 05/21/18 05/21/18 18:59 06:59 18:59 Intake Total 2060 / 2060 600 / 600 Output Total 1200 / 1200 700 / 700 Balance 860 / 860 -100 / -100 Weight 84.6 kg Intake: IV 1100 / 1100 NS Inj 1,000 ML @ 100 mls/hr IV 1000 / 1000 .CONT .Q10H ANNAMARIE Rx#:[id number] Rocephin Inj 1,000 MG In NS Inj 100 / 100 100 ML @ 200 mls/hr IV.SIG Q24H ANNAMARIE Rx#:[id number] Oral 960 / 960 600 / 600 Output: Urine 1200 / 1200 700 / 700 Other: Date of Last Bowel Movement 05/19/18 05/19/18 Narrative: GENERAL: Alert, oriented 3, NAD. SKIN: Warm and dry. HEAD: Normocephalic. EYES: No scleral icterus. No injection or drainage. NECK: Supple, trachea midline. No JVD or lymphadenopathy. CARDIOVASCULAR: Regular rate and rhythm without murmurs, gallops, or rubs. RESPIRATORY: Breath sounds equal bilaterally. No accessory muscle use. GASTROINTESTINAL: Abdomen soft, non-tender, nondistended. MUSCULOSKELETAL: No cyanosis, or edema. BACK: Nontender without obvious deformity. No CVA tenderness. Results - Labs CBC & Chem 7: 05/21/18 06:36 05/21/18 06:36 Laboratory Results - last 24 hr 05/19/18 05/20/18 05/20/18 13:25 04:30 08:28 WBC RBC Hgb Hct MCV MCH MCHC RDW Plt Count MPV Neut % (Auto) Lymph % (Auto) [place] % (Auto) Eos % (Auto) Baso % (Auto) Neut # (Auto) Lymph # (Auto) [place] # (Auto) Eos # (Auto) Baso # (Auto) WBC Differential Differential Comment Sodium Potassium Chloride Carbon Dioxide Anion Gap BUN Creatinine Estimated GFR POC Glucose 118 H Random Glucose Calcium Urine Color Red Urine Clarity Cloudy H Urine pH 6.0 Ur Specific [place] 1.017 Urine Protein 100 H Urine Glucose (UA) 50 Urine Ketones 20 Urine Occult Blood Large H Urine Nitrate Positive H Urine Bilirubin Negative Urine Urobilinogen Less than 2 Ur Leukocyte Esterase Large H Urine RBC Urine WBC Urine WBC Clumps Many H Ur Squamous Epith Cells 3 Ur Transition Epith Cell 1 Amorphous Sediment Rare H Urine Bacteria Many H Urine Mucus Few H Micro UA Comment Culture indicated Urine Culture Comments Culture indicated Tacrolimus Less than 2.0 L 05/20/18 05/20/18 05/20/18 12:31 17:23 20:22 WBC RBC Hgb Hct MCV MCH MCHC RDW Plt Count MPV Neut % (Auto) Lymph % (Auto) [place] % (Auto) Eos % (Auto) Baso % (Auto) Neut # (Auto) Lymph # (Auto) [place] # (Auto) Eos # (Auto) Baso # (Auto) WBC Differential Differential Comment Sodium Potassium Chloride Carbon Dioxide Anion Gap BUN Creatinine Estimated GFR POC Glucose 151 H 112 H 114 H Random Glucose Calcium Urine Color Urine Clarity Urine pH Ur Specific [place] Urine Protein Urine Glucose (UA) Urine Ketones Urine Occult Blood Urine Nitrate Urine Bilirubin Urine Urobilinogen Ur Leukocyte Esterase Urine RBC Urine WBC Urine WBC Clumps Ur Squamous Epith Cells Ur Transition Epith Cell Amorphous Sediment Urine Bacteria Urine Mucus Micro UA Comment Urine Culture Comments Tacrolimus 05/21/18 05/21/18 05/21/18 06:36 06:36 08:29 WBC 11.0 RBC 3.29 L Hgb 9.8 L Hct 29.2 L MCV 88.7 MCH 29.7 MCHC 33.5 RDW 14.7 Plt Count 298 MPV 8.3 Neut % (Auto) 74.9 H Lymph % (Auto) 13.3 [place] % (Auto) 10.3 H Eos % (Auto) 1.3 Baso % (Auto) 0.2 Neut # (Auto) 8.2 H Lymph # (Auto) 1.5 [place] # (Auto) 1.1 H Eos # (Auto) 0.1 Baso # (Auto) 0.0 WBC Differential . Differential Comment Auto diff final Sodium 142 Potassium 3.4 L Chloride 111 H Carbon Dioxide 19.3 L Anion Gap 12 BUN 13 Creatinine 1.43 H Estimated GFR 56 L POC Glucose 115 H Random Glucose 100 Calcium 8.4 L Urine Color Urine Clarity Urine pH Ur Specific [place] Urine Protein Urine Glucose (UA) Urine Ketones Urine Occult Blood Urine Nitrate Urine Bilirubin Urine Urobilinogen Ur Leukocyte Esterase Urine RBC Urine WBC Urine WBC Clumps Ur Squamous Epith Cells Ur Transition Epith Cell Amorphous Sediment Urine Bacteria Urine Mucus Micro UA Comment Urine Culture Comments Tacrolimus Microbiology 05/19/18 13:40 Throat Group A Streptococcus Screen/Cult - Preliminary No Beta Streptococci isolated at 24 hours 05/19/18 13:25 Clean Catch Urine Urine Culture - Preliminary gram negative rods 05/19/18 13:10 Blood - Peripheral Aerobic Blood Culture - Preliminary No growth in 1 day 05/19/18 13:10 Blood - Peripheral Anaerobic Blood Culture - Preliminary No growth in 1 day 05/19/18 13:10 Blood - Peripheral Aerobic Blood Culture - Preliminary No growth in 1 day 05/19/18 13:10 Blood - Peripheral Anaerobic Blood Culture - Preliminary No growth in 1 day Assessment and Plan - Assessment (1) Pyelonephritis Code(s): N12 - Tubulo-interstitial nephritis, not specified as acute or chronic Status: Acute (2) Sepsis Code(s): A41.9 - Sepsis, unspecified organism Status: Acute - Plan Ms. Bucio is a 22 year old female with IDDM, hypothyroidism, history of renal transplant (2015), and history of Hodgkin lymphoma in remission presented to the ED for evaluation of fever, myalgias, and dysuria. Sepsis - Patient meets sepsis criteria based on fever with T 102.3 on arrival, tachycardia, leukocytosis with WBC 18.6, and source of infection (urine) - Lactic acid normal at 1.2 - Currently resolved. Urine tract infection Possible pyelonephritis - U/A with large blood, positive nitrate, and large leukocyte esterase - Urine culture growing E. coli, pansensitive. - Continue Ceftriaxone 1g Qday. - CT A/P with some perinephric fat stranding about the right transplanted kidney -We will continue IV antibiotics today. If patient continues to do well, will discharge patient home on ciprofloxacin on 05/22/2018. Acute kidney injury Hx of Renal transplant (right side) - Patient with a history of right renal transplant in 2016 - Self-reported creatinine baseline is around 1 - Creatinine 2.31 improved to 1.56 ==> 1.43. Diabetes mellitus - Patient on 15 units Novolog TID and 25 units Tresiba at home - In the hospital, we will continue sliding scale insulin and Levemir 7 units q. at bedtime. Hypothyroidism - Resume home levothyroxine 100mcg QAM Full code. DVT prophylaxis: SCDs, Ambulation. (2) Sepsis Qualifiers: Sepsis type: sepsis due to unspecified organism Qualified Code(s): A41.9 - Sepsis, unspecified organism
[2018-05-21 16:11] VITALS: O2SAT 100
[2018-05-21] MEDS: Sod Chloride 0.9% Inj 1,000 ML IV.CONT SCH (19:00)
[2018-05-21] MEDS: Insulin Detemir Inj 1,000 UNIT/10 ML Vial SQ SCH (22:21)
[2018-05-22] MEDS: Sod Chloride 0.9% Inj 1,000 ML IV.CONT SCH (05:02)
[2018-05-22] MEDS: Mycophenolate Mofetil 250 MG Capsule PO SCH (06:07)
[2018-05-22] MEDS: Levothyroxine 100 MCG Tablet PO SCH (06:07)
[2018-05-22] MEDS: TACROLIMUS 1 MG PO SCH (06:07)
[2018-05-22 08:01] VITALS: BP 139/82; RESP 14; TEMP 98
[2018-05-22] MEDS: Famotidine 20 MG Tablet PO SCH (08:30)
[2018-05-22] MEDS: predniSONE 5 MG Tablet PO SCH (08:31)
[2018-05-22] MEDS: Insulin NovoLOG Aspart Correctional Sugar Inj SQ SCH (08:52)
[2018-05-22 09:16] VITALS: PULSE 90
--- NOTE | 2018-05-22 09:24 | P.DS ---
Date of admission: 05/19/18 15:11 Primary care physician: No Primary Care Physician Brief History from admission: 22 year old female with IDDM, hypothyroidism, history of renal transplant (2016), and history of Hodgkin lymphoma in remission presented to the ED for evaluation of fever, myalgias, and dysuria. The patient reports two days ago she started having diffuse body aches, chills, and general malaise. She took her temperature and it was 100.8. She treated it with Tylenol and continued to have a low grade fever but today her temperature spiked to 103.4. She has also had 6/10, periumbilical, constant, dull abdominal pain during this time and today she began having dysuria, nausea, dry heaves, and nonbloody liquid diarrhea. She has had decreased appetite and oral intake the past couple days. She also complains of some substernal chest pain that is associated with a sour taste in her mouth and heart burn. She denies cough, shortness of breath , wheezing, rash, headache, sore throat, hematuria, or edema. Along with her dysuria she also complains of hesitancy and decreased UOP. She states her creatinine is typically around 1. She recently moved to [place] from [place] at the end of December but hasn't been able to establish with any local physicians yet. While in [place] she was followed by nephrology, endocrinology, and oncology. For her diabetes, she takes 15 units Novolog TID and 25 units Trasiba. DS: Diagnosis - Discharge Diagnosis (1) Pyelonephritis Status: Acute (2) Sepsis Status: Acute DS: Medications - Discharge Medications Prescriptions: sulfamethoxazole-trimethoprim [Bactrim DS] 1 tab PO Q12H #6 tab DS: Summary Hospital Course: Ms. Bucio is a 22 year old female with IDDM, hypothyroidism, history of renal transplant (2016), and history of Hodgkin lymphoma in remission presented to the ED for evaluation of fever, myalgias, and dysuria. Sepsis - Patient meets sepsis criteria based on fever with T 102.3 on arrival, tachycardia, leukocytosis with WBC 18.6, and source of infection (urine) - Lactic acid normal at 1.2 - Currently resolved. Urine tract infection Possible pyelonephritis - U/A with large blood, positive nitrate, and large leukocyte esterase - Urine culture growing E. coli, pansensitive. - Continued Ceftriaxone 1g Qday. Will continue Bactrim DS BID X 3 days. - CT A/P with some perinephric fat stranding about the right transplanted kidney. Patient never had any flank pain. - We will continue IV antibiotics today. If patient continues to do well, will discharge patient home on ciprofloxacin on 05/22/2018. Acute kidney injury Hx of Renal transplant (right side) - Patient with a history of right renal transplant in 2016 - Self-reported creatinine baseline is around 1 - Creatinine 2.31 improved to 1.56 ==> 1.43. Diabetes mellitus - Patient on 15 units Novolog TID and 25 units Tresiba at home - In the hospital, we will continue sliding scale insulin and Levemir 7 units q. at bedtime. Hypothyroidism - Resume home levothyroxine 100mcg QAM Full code. DVT prophylaxis: SCDs, Ambulation. - Time Spent with Patient Total time spent providing and/or coordinating discharge services: Less than 30 minutes - Quality: VTE Deep Vein Thrombosis/Pulmonary Embolism Present on Admission: No Exam Vital signs: Vital Signs 05/21/18 10:00 05/21/18 11:00 05/21/18 11:39 Temperature Pulse Rate 98 H 101 H Respiratory Rate Blood Pressure Pulse Oximetry 100 05/21/18 12:00 05/21/18 13:00 05/21/18 14:00 Temperature 98.5 F Pulse Rate 104 H 98 H 88 Respiratory Rate 18 Blood Pressure 119/76 Pulse Oximetry 99 05/21/18 15:00 05/21/18 16:00 05/21/18 17:00 Temperature 98.0 F Pulse Rate 84 80 82 Respiratory Rate 18 Blood Pressure 126/79 Pulse Oximetry 100 05/21/18 18:00 05/21/18 22:00 05/22/18 00:00 Temperature 98.2 F 98.1 F Pulse Rate 90 104 H 96 H Respiratory Rate 18 19 Blood Pressure 145/92 H 133/76 Pulse Oximetry 100 100 05/22/18 04:00 05/22/18 04:58 05/22/18 07:00 Temperature 97.9 F Pulse Rate 67 90 82 Respiratory Rate 17 Blood Pressure 137/85 Pulse Oximetry 100 05/22/18 08:00 05/22/18 09:00 Temperature 98.0 F Pulse Rate 92 H 90 Respiratory Rate 14 Blood Pressure 139/82 Pulse Oximetry 100 Intake & Output 05/21/18 05/22/18 05/22/18 18:59 06:59 18:59 Intake Total 700 / 700 1720 / 1720 Output Total 1700 / 1700 1325 / 1325 Balance -1000 / -1000 395 / 395 Weight 84.5 kg Intake: IV 100 / 100 1000 / 1000 NS Inj 1,000 ML @ 100 mls/hr IV 1000 / 1000 .CONT .Q10H ANNAMARIE Rx#:[id number] Rocephin Inj 1,000 MG In NS Inj 100 / 100 100 ML @ 200 mls/hr IV.SIG Q24H ANNAMARIE Rx#:[id number] Oral 600 / 600 720 / 720 Output: Urine 1700 / 1700 1325 / 1325 Other: Date of Last Bowel Movement 05/21/18 05/21/18 05/21/18 # Bowel Movements 2 Results Procedures completed during hospitalization: None. Labs on day of discharge: Labs from last 24 hours 05/22/18 05/21/18 05/21/18 07:47 22:07 16:50 POC Glucose 94 128 H 139 H 05/21/18 12:37 POC Glucose 125 H Preliminary micro results at discharge 05/19/18 13:10 Aerobic Blood Culture - Preliminary Blood - Peripheral No growth in 2 days Anaerobic Blood Culture - Preliminary No growth in 2 days 05/19/18 13:10 Aerobic Blood Culture - Preliminary Blood - Peripheral No growth in 2 days Anaerobic Blood Culture - Preliminary No growth in 2 days - Impressions ITS Impressions Chest X-Ray 05/19/18 13:09 CONCLUSION: Left basilar atelectasis. Abdomen/Pelvis CT 05/19/18 14:50 CONCLUSION: 1. Transplant kidney in the right side of the pelvis. Mild nonspecific stranding opacity in the fat about the transplant kidney. No evidence of hydronephrosis. 2. No other acute findings identified in the abdomen and pelvis. Discharge Plan - Discharge Disposition Patient Disposition: 01 Discharge Home - Discharge Condition Condition: Good - Discharge Order Discharge Orders: Discharge Order (Routine); Ordered 05/22/18 Ordered By: Radha Pires - Discharge Details Anticipated Discharge Date: 05/22/18 Discharge Comment: [employer] follow up within 7-10 days. - Physicians Team Primary Care Provider: Primary Care Jamesi,No Attending Provider: Radha Pires
== END 2018-05-22 10:06 | disposition home or self-care (01) ==
LOC: NEPC 12:33 → NEDA 15:11 → HCIS 17:16
PROVIDERS: ADMIT Hospitalist; ATTEND Hospitalist